=== PATIENT | female | born 1975 | race Caucasian/White ===

== ENCOUNTER 2018-06-23 13:17 | Emergency (ER) | payer MEDICAID ==
[2018-06-23 14:12] LABS: PLATELET COUNT 260 10^3/uL (150-400)
--- NOTE | 2018-06-23 14:30 | EDPHY ---
H & P Time Seen by Provider: 06/23/18 14:01 HPI/ROS: HPI Chest pain, tingling all over. 42-year-old female by private vehicle with her brother and friend. This patient reports that since this morning, early, she has had a sensation of tightness in her chest as well as tingling in her face, chest, hands and feet. She reports that she has had these sensations in the past but not as intensely. She states that she does have a history of anxiety but has never been formally diagnosed with anxiety. Her father had a heart attack at the age of 68. She smokes cigarettes occasionally. She does drink about a bottle of wine a night. She otherwise has no cardiac risk factors. She does not take oral contraceptives. She denies any prescription medications. ROS: Constitutional: No fever, no chills. As. Eyes: No discharge. No changes in vision. ENT: No sore throat. No nasal congestion or rhinorrhea. Respiratory: No cough. No shortness of breath. Cardiac: As above, no palpitations. Gastrointestinal: No abdominal pain, no vomiting, no diarrhea. Genitourinary: No hematuria. No dysuria or increased frequency with urination. Musculoskeletal: No back pain. No neck pain. No myalgias or arthralgias. Skin: No rashes. Neurological: No headache. No focal weakness or altered sensation. Past medical history: Denies any past medical history. Social history: Here with friend and brother. Drinks about a bottle of wine a night. Smokes a few cigarettes in the evening. Denies IV drugs and street drugs. No methamphetamine or cocaine. Physical Exam: General Appearance: Alert, no distress. Flat affect. This patient is responding to questions appropriately and in full sentences. This patient appears well-hydrated and well-nourished. Eyes: Pupils equal and round no pallor or injection. No lid edema, erythema or injection. Respiratory: There are no retractions, lungs are clear to auscultation with good air movement bilaterally. Cardiovascular: Regular rate and rhythm. No murmur. Gastrointestinal: Abdomen is soft and nontender, no masses, bowel sounds normal. No focal tenderness at McBurney's point. No Carvalho sign. Neurological: Motor sensory function is grossly intact. Cranial nerves are normal. Gait is normal. Skin: Warm and dry, no rashes. Musculoskeletal: Neck is supple and nontender. Extremities are symmetrical. All joints range without pain or impingement. Psychiatric: No agitation. No depression. Database: EKG: EKG time is 1:40 p.m.; EKG shows a narrow complex normal sinus rhythm with a ventricular rate of 76. Low voltage noted in the precordial leads. The ID, QRS , QT intervals are within normal limits. There are no ST-T wave changes indicative of ischemic or injury pattern. No evidence of right heart strain. Interpreted by me. Imaging: Chest x-ray AP portable; the cardiac mediastinal silhouette is unremarkable. No evidence of infiltrate or pneumothorax. No acute cardiopulmonary disease process noted. Interpreted by me. Procedures: Emergency department course: Triage vital signs reviewed. She was initially tachycardic with a ventricular rate of 114. Triage vital signs are otherwise normal. Her tachycardia has resolved as noted on her EKG. Her presentation is consistent with an anxiety reaction. She is low risk for acute coronary syndrome based on her heart score. EKG obtained and reviewed by myself. I had discussed giving her an anxiolytic medication. She declines this. 2:45 p.m., patient re-evaluated, resting comfortably at this time. Results of her emergency department workup discussed with her and family. She is feeling better and denies any significant chest pain. No associated shortness of breath. She feels comfortable going home and I feel she is safe for discharge. Follow-up and return to emergency department precautions reviewed with her. All of her questions were answered. She was discharged from the emergency department in good condition with her brother and friend. Differential Diagnosis: The differential diagnosis on this patient includes but is not limited to anxiety reaction. Acute coronary syndrome, pulmonary embolism, aortic dissection, pneumothorax, pneumonitis, unlikely. This represents a partial list of diagnoses considered. These considerations are based on history, physical exam, past history, reassessment and diagnostic testing. Smoking Status: Unknown if ever smoked Constitutional: Initial Vital Signs Heart Rate 114 H 06/23/18 13:19 Respiratory Rate 18 06/23/18 13:19 Blood Pressure 109/88 H 06/23/18 13:19 O2 Sat (%) 100 06/23/18 13:19 O2 Delivery Mode Room Air Allergies/Adverse Reactions: No Known Allergies Allergy (Unverified 06/23/18 13:25) Home Medications: Medication Instructions Recorded NK [No Known Home Meds] 06/23/18 Medical Decision Making - Data Points Laboratory Results: Laboratory Results 06/23/18 13:55 06/23/18 13:55 Point of Care Test Results: Chemistry 06/23/18 13:58 POC Troponin I 0.00 ng/mL ng/mL (0.00-0.08) Departure - Departure Disposition: Home, Routine, Self-Care Clinical Impression: Paresthesia, Chest discomfort Condition: Good Instructions: Chest Pain (ED), Anxiety (ED) Additional Instructions: Read and follow provided instructions. Follow-up with your primary care physician on Tuesday for re-evaluation. I have also provided you with a referral to our cardiology group. They should contact you for a follow-up appointment for further evaluation of your chest discomfort. Return to the emergency department for persistent or worsening chest pain, difficulty breathing or other serious concerns. Referrals: [facility] [Provider Group] - As per Instructions
[2018-06-23 15:15] VITALS: BP 112/78
--- NOTE | 2018-06-23 15:19 | CPEKG ---
Test Reason : OPEN Blood Pressure : / mmHG Vent. Rate : 076 BPM Atrial Rate : 075 BPM P-R Int : 115 ms QRS Dur : 083 ms QT Int : 409 ms P-R-T Axes : 053 074 058 degrees QTc Int : 460 ms Sinus rhythm Low voltage, precordial leads Anteroseptal infarct, old Confirmed by Eduardo Khalil ([id number]) on 06/23/2018 3:18:45 PM Referred By: Confirmed By:Eduardo Khalil
== END 2018-06-23 15:23 | disposition home or self-care (01) ==
LOC: MERGE 13:17 → EDBD 13:17
DX: R07.9 Chest pain, unspecified (principal); R20.2 Paresthesia of skin
CPT/HCPCS: 84484-PO